=== PATIENT | female | born 1980 | race Hispanic/Latino ===

== ENCOUNTER 2018-01-26 14:07 | Emergency (ER) | payer BC ==
[~2018-01-26] VITALS: Ht 165.1 cm; Wt 99.8 kg
[2018-01-26] MEDS ORDERED: KETOROLAC TROMETHAMINE 60 MG/2 ML VIAL IM ONE (14:30)
[2018-01-26 14:39] VITALS: BP 150/70
== END 2018-01-26 14:49 | disposition home or self-care (01) ==
LOC: FSED 14:07
DX: M54.5 Low back pain (principal); S39.012A Strain of muscle, fascia and tendon of lower back, initial encounter; X50.1XXA Overexertion from prolonged static or awkward postures, initial encounter
CPT/HCPCS: 99282; J1885

== ENCOUNTER → 2018-02-04 | Outpatient (CLI) | payer BC ==
--- NOTE | 2018-02-04 11:55 | Diagnostic Imaging Report ---
PROCEDURE:X-RAY LEFT KNEE, THREE OR MORE VIEWS COMPARISON:None. INDICATIONS:LEFT KNEE PAIN FINDINGS: The bones are well-mineralized. There are no fractures, subluxations, lytic or blastic lesions. There is no evidence of a joint effusion. No significant degenerative changes. CONCLUSION: No acute osseous abnormality. Dictated by: REINALDO QUINTANILLA M.D. on 02/04/2018 at 12:00 Electronically approved by: REINALDO QUINTANILLA M.D. on 02/04/2018 at 12:00
--- NOTE | 2018-02-04 12:15 | Diagnostic Imaging Report ---
PROCEDURE:HIPS BILAT 3-4VWS (+/- PELVIS) TECHNIQUE:Pelvic and bilateral hip radiographs performed. COMPARISON:None. FINDINGS: No evidence of fracture or malalignment. The right hip is unremarkable. The left hip demonstrates severe joint space narrowing with subchondral sclerosis. There are cystic changes and sclerosis in the left femoral head which demonstrates possible fragmentation of the superior margin. Mild degenerative changes in the bilateral sacroiliac joints and pubic symphysis. 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 MRI is suggested for further characterization. Dictated by: REINALDO QUINTANILLA M.D. on 02/04/2018 at 12:20 Electronically approved by: REINALDO QUINTANILLA M.D. on 02/04/2018 at 12:20
--- NOTE | 2018-02-04 15:00 | Diagnostic Imaging Report ---
PROCEDURE: X-RAY LUMBAR SPINE, TWO VIEWS COMPARISON: None. INDICATIONS: DECREASED RANGE IN HIP MOVEMENT FINDINGS: The lumbar spine is in anatomic alignment. There is a possible pars defect at L5-S1, although not optimally evaluated on two view radiographs. Grade 1 retrolisthesis of L2 on L3 and L3 on L4. Vertebral body heights and disc spaces are maintained. Mild facet degenerative changes at L4-L5 and L5-S1. The paraspinal soft tissues are normal. A 5 mm and 8 mm calcification project over the left kidney. CONCLUSION: No acute osseous abnormality. Possible pars defect at L5-S1, which would be further characterized on oblique radiographs if clinically indicated. Mild facet degenerative changes in the lower lumbar spine. Likely left sided renal stones measuring 5 mm and 8 mm. Dictated by: REINALDO QUINTANILLA M.D. on 02/04/2018 at 15:05 Electronically approved by: REINALDO QUINTANILLA M.D. on 02/04/2018 at 15:05
== END ==
LOC: RAD 09:55
PROVIDERS: ATTEND Family Medicine
DX: M25.652 Stiffness of left hip, not elsewhere classified (principal); M25.651 Stiffness of right hip, not elsewhere classified; M25.562 Pain in left knee
CPT/HCPCS: 72100; 73522; 81025

== ENCOUNTER 2021-11-26 07:51 | Emergency (ER) | payer BC ==
[~2021-11-26] VITALS: Ht 160 cm; Wt 99.8 kg
[2021-11-26] MEDS ORDERED: ZITHROMAX250 MG PO (08:33)
== END 2021-11-26 08:58 | disposition home or self-care (01) ==
LOC: FSED 08:30
DX: J02.9 Acute pharyngitis, unspecified (principal)
CPT/HCPCS: 83518; 99282